=== PATIENT | female | born 1985 | race Caucasian/White ===

== ENCOUNTER 2017-03-07 01:33 | Emergency (ER) | payer SELFPAY ==
[2017-03-07] MEDS ORDERED: HYDROXYZINE HCL10 M1 (02:03)
[2017-03-07] MEDS ORDERED: RISPERDAL4 M1 (02:03)
[2017-03-07 02:39] LABS: BASO % 0.1 % (0-2); EOS % 0.1 % (0-7); HCT-HEMATOCRIT 37.4 % (34.0-49.0); HGB-HEMOGLOBIN 12.1 gm/dl (12.0-15.5); IMMATURE GRANULOCYTES ABSOLUTE 0.03 tho/cmm (0-0.03); IMMATURE GRANULOCYTES PERCENT 0.4 % (0-0.3); LYMPH % 3.5 % (20-45); LYMPH ABSOLUTE COUNT 0.3 tho/cmm (0.8-4.5); MCH (MEAN CORPUSCULAR HGB) 29.4 pg (28.0-32.0); MCHC MEAN CORPUSCULAR HGB CONC 32.4 % (32.0-36.0); MEAN PLATELET VOLUME 10.1 cmc (9.4-12.4); MONOCYTE ABSOLUTE COUNT 0.1 tho/cmm (0.0-1.2); NEUTROPHIL ABSOLUTE COUNT 7.7 tho/cmm (1.6-8.0); NEUTROPHIL-AUTOMATED 7.7 tho/cmm (1.6-8.0); NEUTROPHILS % 94.9 % (40-80); PLATELET COUNT 274 tho/cmm (150-450); RED BLOOD COUNT 4.11 mil/cmm (4.00-5.20); RED CELL DISTRIBUTION WIDTH 12.4 % (12.4-16.4); WHITE BLOOD COUNT 8.1 tho/cmm (4.0-10.0)
[2017-03-07 02:51] LABS: ANION GAP 12 mmol/L (0-20); CALCIUM 8.9 mg/dl (8.5-10.5); CARBON DIOXIDE-VENOUS 26 mmol/L (22-32); CHLORIDE 104 mmol/l (96-110); CREATININE 0.87 mg/dl (0.50-1.10); GLUCOSE 103 mg/dL (70-110); POTASSIUM 3.6 mmol/L (3.7-5.1); SODIUM 138 mmol/L (135-145); eGFR VALUE FOR BLACK >90 mL/Min
[2017-03-07 03:09] LABS: PREGNANCY-SERUM NEGATIVE (NEGATIVE)
[2017-03-07 03:35] LABS: BLOOD UREA NITROGEN 17 mg/dl (6-24)
[2017-03-07 03:36] LABS: BUN/CREATININE RATIO 19.5 RATIO (6-25)
== END 2017-03-07 04:27 ==
LOC: EDMED 01:33
PROVIDERS: Physician Assistant
DX: R51 Headache (principal); R11.0 Nausea; F41.9 Anxiety disorder, unspecified
CPT/HCPCS: J1200; J1885; J2765; J7030